=== PATIENT | female | born 1950 | race Caucasian/White ===

== ENCOUNTER 2016-05-19 17:25 | Emergency (ER) | payer MEDICARE ==
[~2016-05-19] VITALS: Ht 162.6 cm; Wt 75.0 kg
[2016-05-19 17:29] VITALS: BP 183/96; PULSE 106; RESP 24; TEMP 97.5; O2SAT 97
--- NOTE | 2016-05-19 17:56 | PD ---
HPI Chief Complaint: Abnormal Results Time Seen by Provider: 17:55 Travel History International Travel<30 days: No Contact w/Intl Traveler<30days: No Traveled to known affect area: No History of Present Illness HPI 66-year-old female came to the emergency room with history of feeling sick and dry mouth. Patient seems extremely anxious and is unable to express her main concerns and was kind of all over the place with her history. She seems anxious and slightly tachycardic on the monitor. She says this started all of a sudden about 1-2 hours ago. She is also complaining some blurred vision. Patient has history of diabetes and her blood sugar was 220 here. Denying of any chest pain or any other pain. Her daughter is here with her. Patient says that she is taking all her medications she supposed to. No history of dizziness or light headedness. Patient has h/o anxiety. PFS Past Medical History Narrative Medical List of her past medical history is reviewed from the nursing note. Anxiety: Yes Diabetes: Yes ?: Not Past Surgical History Hysterectomy: Yes Social History Tobacco Use: No Allergies-Medications (Allergen,Severity, Reaction): Coded Allergies: No Known Allergies (Unverified , 05/19/16) Comments No known drug allergies. Reported Meds & Prescriptions Reported Meds & Active Scripts Active Macrobid (Nitrofurantoin Monoh/Nitrofur Macro) 100 Mg Cap 100 Mg PO BID 10 Days Reported Aspirin 81 Mg Chew 81 Mg CHEW DAILY Lisinopril 40 Mg Tab 40 Mg PO DAILY Fish Oil + D3 (Fish Oil-Cholecalciferol) 1,200-1,000 Mg-Unit Cap 1 Cap PO DAILY Metformin (Metformin HCl) 1,000 Mg Tab 1,000 Mg PO BIDPC With meals Narrative Medication Awaiting for the nurse to the med reconciliation. Review of Systems Except as stated in HPI: all other systems reviewed are Neg Physical Exam Narrative GENERAL: Awake, alert, anxious, moderate distress SKIN: Warm and dry. HEAD: Atraumatic. Normocephalic. EYES: Pupils equal and round. No scleral icterus. No injection or drainage. ENT: No nasal bleeding or discharge. Dry mucous membrane and coated tongue NECK: Trachea midline. No JVD. CARDIOVASCULAR: Regular rate and rhythm. No murmur appreciated. RESPIRATORY: No accessory muscle use. Clear to auscultation. Breath sounds equal bilaterally. GASTROINTESTINAL: Abdomen soft, non-tender, nondistended. Hepatic and splenic margins not palpable. MUSCULOSKELETAL: No obvious deformities. No clubbing. No cyanosis. No edema. NEUROLOGICAL: Awake and alert. No obvious cranial nerve deficits. Motor grossly within normal limits. Normal speech. PSYCHIATRIC: Appropriate mood and affect; insight and judgment normal. Data Data Last Documented VS Vital Signs Date Time Temp Pulse Resp B/P Pulse Ox O2 Delivery O2 Flow Rate FiO2 05/19/16 19:46 98.9 71 16 136/75 99 05/19/16 18:00 Room Air Orders Prothrombin Time / Inr (Pt) (05/19/16 18:08) Complete Blood Count With Diff (05/19/16 18:08) Comprehensive Metabolic Panel (05/19/16 18:08) Troponin I (05/19/16 18:08) Urinalysis - C+S If Indicated (05/19/16 18:08) Ct Brain W/O Iv Contrast(Rout) (05/19/16 18:08) Chest, Single Ap (05/19/16 18:08) Ecg Monitoring (05/19/16 18:08) Iv Access Insert/Monitor (05/19/16 18:08) Oximetry (05/19/16 18:08) Sodium Chloride 0.9% Flush (Ns Flush) (05/19/16 18:15) Alprazolam (Xanax) (05/19/16 18:15) Urine Culture (05/19/16 18:10) Sodium Chlor 0.9% 1000 Ml Inj (Ns 1000 M (05/19/16 18:45) Nitrofurantoin Monohyd Macrocr (Macrobid (05/19/16 19:00) Electrocardiogram (05/19/16 18:12) Labs Laboratory Tests Test 05/19/16 18:10 Prothrombin Time 10.7 SEC Prothromb Time International 1.0 RATIO Ratio Sodium Level 136 MEQ/L Potassium Level 4.1 MEQ/L Chloride Level 101 MEQ/L Carbon Dioxide Level 22.2 MEQ/L Anion Gap 13 MEQ/L Blood Urea Nitrogen 20 MG/DL Creatinine 1.10 MG/DL Estimat Glomerular Filtration 49 ML/MIN Rate Random Glucose 209 MG/DL Calcium Level 8.8 MG/DL Total Bilirubin 0.3 MG/DL Aspartate Amino Transf 16 U/L (AST/SGOT) Alanine Aminotransferase 25 U/L (ALT/SGPT) Alkaline Phosphatase 77 U/L Troponin I LESS THAN 0.02 NG/ML Total Protein 7.0 GM/DL Albumin 3.9 GM/DL White Blood Count 8.6 TH/MM3 Red Blood Count 3.80 MIL/MM3 Hemoglobin 12.2 GM/DL Hematocrit 35.7 % Mean Corpuscular Volume 93.9 FL Mean Corpuscular Hemoglobin 32.1 PG Mean Corpuscular Hemoglobin 34.2 % Concent Red Cell Distribution Width 13.0 % Platelet Count 221 TH/MM3 Mean Platelet Volume 9.7 FL Neutrophils (%) (Auto) 44.4 % Lymphocytes (%) (Auto) 43.9 % Monocytes (%) (Auto) 8.8 % Eosinophils (%) (Auto) 2.3 % Basophils (%) (Auto) 0.6 % Neutrophils # (Auto) 3.8 TH/MM3 Lymphocytes # (Auto) 3.8 TH/MM3 Monocytes # (Auto) 0.8 TH/MM3 Eosinophils # (Auto) 0.2 TH/MM3 Basophils # (Auto) 0.1 TH/MM3 CBC Comment DIFF FINAL Differential Comment Urine Color YELLOW Urine Turbidity HAZY Urine pH 5.5 Urine Specific [place] 1.026 Urine Protein TRACE mg/dL Urine Glucose (UA) NEG mg/dL Urine Ketones TRACE mg/dL Urine Occult Blood NEG Urine Nitrite NEG Urine Bilirubin NEG Urine Urobilinogen 2.0 MG/DL Urine Leukocyte Esterase LARGE Urine RBC 3 /hpf Urine WBC 62 /hpf Urine Squamous Epithelial 1 /hpf Cells Urine Bacteria FEW /hpf Urine Hyaline Casts 13 /lpf Urine Mucus FEW /lpf Microscopic Urinalysis Comment CATH-CULTURE IND MDM Medical Decision Making Medical Screen Exam Complete: Yes Emergency Medical Condition: Yes Medical Record Reviewed: Yes Interpretation(s) Twelve-lead EKG was reviewed by me. Normal sinus rhythm, left axis deviation, nonspecific ST-T wave changes. Heart rate of 93 bpm. Differential Diagnosis DKA, metabolic abnormalities, generalized anxiety disorder, panic attack Narrative Course 6:47 PM CBC is back and within normal limit. Head CT and chest x-ray are within normal limit. Awaiting for the chemistry to be done and resulted. UA shows ketones and sugar. There is UTI. I will give her Macrobid for that. Patient has been given Xanax for anxiety and IV fluid bolus. 7:07 PM all the test results are within normal limit. I will send her home on Macrobid prescription. Procedures EKG Prior to Arrival: No Diagnosis Primary Impression: UTI (urinary tract infection) Qualified Code: N39.0 - Urinary tract infection without hematuria, site unspecified Additional Impression: Anxiety Referrals: Primary Care Physician 2 days Additional Instructions: Please return to the ER if the condition worsens or any other new concerns. Take the medication as per the prescription direction. Follow-up with your primary care in couple days. Med/Other Pt SpecificInfo: Prescription(s) given Scripts Nitrofurantoin Monohydrate Macrocrystals (Macrobid)100 Mg [id number] Mg PO BID 10 Days Ref 0 Prov:Dania Grossman MD 05/19/16 Disposition: 01 DISCHARGE HOME Condition: Stable Dania Grossman MD May 19, 2016 17:56
[2016-05-19 18:00] VITALS: O2SAT 96
[2016-05-19] MEDS ORDERED: ALPRAZolam 0.25 MG TAB PO ONE (18:15)
[2016-05-19] MEDS ORDERED: SODIUM CHLORIDE 0.9% FLUSH 5 ML FLUSH IVF PRN (18:15)
[2016-05-19 18:32] LABS: AUTOMATED NEUTROPHIL # 3.8 TH/MM3 (1.8-7.7); BASOPHIL # 0.1 TH/MM3 (0-0.2); BASOPHIL % 0.6 % (0.0-2.0); EOSINOPHIL # 0.2 TH/MM3 (0-0.4); EOSINOPHIL % 2.3 % (0.0-4.0); HEMATOCRIT 35.7 % (35.0-46.0); HEMO FLAGS DIFF FINAL; LYMPH % 43.9 % (9.0-44.0); LYMPHOCYTE # 3.8 TH/MM3 (1.0-4.8); MEAN CELL VOLUME 93.9 FL (80.0-100.0); MEAN CORPUSCULAR HEMOGLOBIN 32.1 PG (27.0-34.0); MEAN CORPUSCULAR HGB CONC 34.2 % (32.0-36.0); MONO % 8.8 % (0.0-8.0); NEUT % 44.4 % (16.0-70.0); PLATELET COUNT 221 TH/MM3 (150-450); WHITE BLOOD COUNT 8.6 TH/MM3 (4.0-11.0)
[2016-05-19 18:33] LABS: BACTERIA, URINE FEW /hpf; BLOOD, URINE NEG (NEG); GLUCOSE,URINE NEG (NEG); HYALINE CAST, URINE 13 /lpf (RARE); KETONE, URINE TRACE mg/dL (NEG); MUCUS URINE FEW /lpf (OCC); NITRITE,URINE NEG (NEG); PH, URINE 5.5 (5.0-8.5); SQUAMOUS EPITHELIAL CELL URINE 1 /hpf (0-5); URINE COLOR YELLOW (YELLW/STRAW)
[2016-05-19 18:35] LABS: COMMENT (UR) CATH-CULTURE IND; CULTURE IF INDICATED CATH CULTURE IND
[2016-05-19 18:45] LABS: ANION GAP 13 MEQ/L (5-15); AST (GOT) 16 U/L (15-37); BICARBONATE 22.2 MEQ/L (21.0-32.0); BLOOD UREA NITROGEN 20 MG/DL (7-18); CHLORIDE 101 MEQ/L (98-107); GLOMERULAR FILTRATION RATE 49 ML/MIN (>89); POTASSIUM 4.1 MEQ/L (3.5-5.1); PROTHROMBIN TIME - PATIENT 10.7 SEC (9.8-11.6); SODIUM (NA) 136 MEQ/L (136-145)
[2016-05-19] MEDS ORDERED: SODIUM CHLOR 0.9% 1000 ML INJ 1,000 ML IV ONE (18:45)
[2016-05-19 18:50] LABS: ALKALINE PHOSPHATASE 77 U/L (45-117); ALT (GPT) 25 U/L (10-53); TOTAL BILIRUBIN ADULT 0.3 MG/DL (0.2-1.0)
--- NOTE | 2016-05-19 18:57 | RADRPT ---
EXAM DATE/TIME: 05/19/2016 18:33 [facility] COMPARISON: No previous studies available for comparison. INDICATIONS : Weakness and general malaise. RADIATION DOSE: 36.39 CTDIvol (mGy) MEDICAL HISTORY : Hypertension. Diabetes mellitus type 2. SURGICAL HISTORY : Hysterectomy. ENCOUNTER: Initial ACUITY: 1 day PAIN SCALE: 3/10 LOCATION: cranial TECHNIQUE: Multiple contiguous axial images were obtained of the head. Using automated exposure control and adj ustment of the mA and/or kV according to patient size, radiation dose was kept as low as reasonably a chievable to obtain optimal diagnostic quality images. FINDINGS: CEREBRUM: The ventricles are normal for age. No evidence of midline shift, mass lesion, hemorrhage or acute in farction. No extra-axial fluid collections are seen. POSTERIOR FOSSA: The cerebellum and brainstem are intact. The 4th ventricle is midline. The cerebellopontine angle i s unremarkable. EXTRACRANIAL: The visualized portion of the orbits is intact. SKULL: The calvaria is intact. No evidence of skull fracture. CONCLUSION: Normal examination for a patient of this age. Aravind Kapadia MD on May 19, 2016 at 18:55 Board Certified Radiologist. This report was verified electronically.
[2016-05-19] MEDS ORDERED: NITROFURANTOIN MONOHYD MACROCR 100 MG CAP PO ONE (19:00)
[2016-05-19] MEDS ORDERED: FISHCAP4 PO (19:09)
[2016-05-19] MEDS ORDERED: METF1000 PO (19:09)
[2016-05-19] MEDS ORDERED: ASPI81CH CHEW (19:09)
[2016-05-19] MEDS ORDERED: LISI40TA PO (19:09)
[2016-05-19] MEDS ORDERED: MACR100C2 PO (19:11)
--- NOTE | 2016-05-19 19:20 | RADRPT ---
EXAM DATE/TIME: 05/19/2016 18:17 [facility] COMPARISON: No previous studies available for comparison. INDICATIONS : Syncopal episode today. Patient states blurred vision and lack of saliva. MEDICAL HISTORY : Hypertension. Diabetes mellitus type II. SURGICAL HISTORY : None. ENCOUNTER: Initial ACUITY: 1 day PAIN SCORE: 0/10 LOCATION: Bilateral chest FINDINGS: A single view of the chest demonstrates no focal consolidation or effusion. Mildly tortuous aorta. He art size within normal limits. CONCLUSION: 1. No acute findings. Aravind Kapadia MD on May 19, 2016 at 19:18 Board Certified Radiologist. This report was verified electronically.
[2016-05-19 19:46] VITALS: BP 136/75; TEMP 98.9
--- NOTE | 2016-05-20 12:53 | EKG ---
Date Performed: 05/19/2016 Time Performed: 18:12:17 PTAGE: 66 years EKG: Sinus rhythm MINIMAL VOLTAGE CRITERIA FOR LVH, CONSIDER NORMAL VARIANT BORDERLINE ECG NO PREVIOUS TRACING DOCTOR: Praful Agrawal Interpretating Date/Time 05/20/2016 12:49:39
== END 2016-05-19 20:05 | disposition home or self-care (01) ==
LOC: NEPE 17:25
DX: N39.0 Urinary tract infection, site not specified (principal); E11.9 Type 2 diabetes mellitus without complications; F41.9 Anxiety disorder, unspecified; R94.31 Abnormal electrocardiogram [ECG] [EKG]; Z79.899 Other long term (current) drug therapy; B96.20 Unspecified Escherichia coli [E. coli] as the cause of diseases classified elsewhere
CPT/HCPCS: 70450; 71010; 80053; 81001; 84484; 85025; 85610; 87077; 87086; 87186; 93005; 96360; 99284; J7030